=== PATIENT | male | born 1975 | race Two or more races ===

== ENCOUNTER 2024-03-27 10:19 | Emergency (ER) | payer MEDICAID, OTHER ==
[~2024-03-27] VITALS: Ht 167.6 cm; Wt 86.2 kg
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
[2024-03-27 11:34] VITALS: PULSE 65; RESP 18; O2SAT 95
[2024-03-27] MEDS: KETOROLAC TROMETH 60MG/2ML VIAL IM ONE (11:39)
--- NOTE | 2024-03-27 11:59 | DVH ---
EXAM: XY LUMBAR SPINE 3 VIEW HISTORY: pain COMPARISON: None TECHNIQUE: AP and lateral views of the lumbar spine were performed. FINDINGS: No fracture or listhesis of the lumbar spine. There is mild lumbar degenerative disc disease and fac et arthropathy. There is minimal lumbar dextroscoliosis. There is fecal retention in the colon, not f ully imaged here. IMPRESSION: 1. Degenerative changes of the lumbar spine without evidence of fracture. 2. Fecal retention in the colon which may indicate constipation.
[2024-03-27] MEDS ORDERED: TRAM-626 PO (12:05)
[2024-03-27 12:43] VITALS: BP 135/82; PULSE 62; RESP 18; TEMP 98.4; O2SAT 97
== END 2024-03-27 12:44 | disposition home or self-care (01) ==
LOC: ER 10:19
DX: S33.5XXA Sprain of ligaments of lumbar spine, initial encounter (principal); E78.5 Hyperlipidemia, unspecified; Z98.890 Other specified postprocedural states; V89.2XXA Person injured in unspecified motor-vehicle accident, traffic, initial encounter; Y93.89 Activity, other specified; Y92.89 Other specified places as the place of occurrence of the external cause; Y99.8 Other external cause status
CPT/HCPCS: 72100; 96372; 99283; J1885

== ENCOUNTER 2024-05-06 10:14 | Emergency (ER) | payer MEDICAID ==
[~2024-05-06] VITALS: Ht 167.6 cm; Wt 86.2 kg
[~2024-05-06 10:14] MED LIST: TRAM-626 PO
[2024-05-06 10:46] VITALS: BP 139/82; PULSE 69; RESP 18; TEMP 99.1; O2SAT 98
[2024-05-06 12:44] LABS: Urine Bacteria None Seen /hpf (None Seen); Urine Blood Negative /uL (Negative); Urine Clarity Clear (Clear); Urine Color Light-Yellow (Yellow); Urine Protein, UAD Negative (Negative); Urine Specific Gravity 1.016 (1.001-1.035); Urine Squamous Epithelial Cell None Seen /hpf (<5); Urine Urobilinogen Normal (Negative); Urine WBC < 1 /HPF (0-3)
[2024-05-06] MEDS ORDERED: CYCL-839 PO (13:01)
[2024-05-06] MEDS ORDERED: TRAM-626 PO (13:01)
--- NOTE | 2024-05-06 13:01 | ED.PDOC ---
Back pain HPI HPI Comments 49 year male with chx back pain presents for medication refill. Unable to schedule f/u with [facility]. No red flags. Chief Complaint: Back Pain Time Seen by MD: 10:47 Primary Care Provider: UNKNOWN Reviewed Notes: Nurses Notes, Medications, Allergies Allergies: Coded Allergies: NO KNOWN ALLERGIES (Unverified , 05/06/24) Home Meds Active Scripts Cyclobenzaprine Hcl (Cyclobenzaprine Hcl) 10 Mg Tab, 10 MG PO QHSP PRN for 14 Days, #30 TAB 0 Refills Prov:AALIYAH SHARMA V/[employer] 05/06/24 Tramadol HCl (Tramadol HCl) 50 Mg Tab, 50 MG PO Q12HP PRN for 10 Days, #20 TAB Prov:AALIYAH SHARMA V/[employer] 05/06/24 Information Source: Patient Mode of Arrival: Ambulatory Past Medical History PAST MEDICAL HISTORY: High Lipids Family History Family History: Reviewed,noncontributory to illness, No family hx of Cancer, No family hx of DM, No family hx of Heart marjorie, No family hx of HTN, No family hx ofKidney marjorie, No family hx of Liver marjorie, No family hx of Lung marjorie, No family hx of Stroke Social History Smoker: Non-Smoker Alcohol: Denies ETOH Use Drugs: Denies Drug Use Lives In: Home All Other Systems: Reviewed and Negative (Per HPI) Physical Exam General Appearance: No Apparent Distress, Normal HEENT: Normal ENT Inspection, Pharynx Normal, TMs Normal Neck: Full Range of Motion, Non-Tender, Normal, Normal Inspection Respiratory: Chest Non-Tender, Lungs Clear, No Accessory Muscle Use, No Respiratory Distress, Normal Breath Sounds Cardiovascular: No Murmur, No Gallop, Regular Rate/Rhythm Breast Exam: Deferred Gastrointestinal: No Organomegaly, Non Tender, No Pulsatile Mass, Normal Bowel Sounds, Soft Genitalia: Deferred Pelvic: Deferred Rectal: Deferred Extremities: No calf tenderness, Normal capillary refill, Normal inspection, Normal range of motion, Non-tender, No pedal edema Musculoskeletal : Apperance: Normal Neurologic: Alert, 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 Was a procedure done?: No Back Pain Differential Dx Differential Diagnosis: Musculoskeletal Pain X-Ray, Labs, Meds, VS Vital Signs Date Time Temp Pulse Resp B/P (MAP) Pulse Ox O2 Delivery O2 Flow Rate FiO2 05/06/24 10:46 69 18 98 Room Air 05/06/24 10:46 99.1 69 18 139/82 (101) 98 99.1 05/06/24 10:21 99.1 69 18 139/82 (101) 98 99.1 Lab Test 05/06/24 12:00 Range/Units Urine Color Light-yellow Yellow Urine Clarity Clear Clear Urine pH 6.0 5.0-9.0 Urine Specific [place] 1.016 1.001-1.035 Urine Protein Negative Negative Urine Ketones Negative Negative Urine Blood Negative Negative /uL Urine Nitrite Negative Negative Urine Bilirubin Negative Negative Urine Urobilinogen Normal Negative mg/dL Urine Leukocyte Esterase Negative Negative /uL Urine RBC None seen 0 - 3 /hpf Urine Microscopic WBC < 1 0-3 /HPF Urine Squamous Epithelial Cells None seen <5 /hpf Urine Bacteria None seen None Seen /hpf Urine Glucose Normal Normal mg/dL Current Medications Medications (Trade) Dose Ordered Sig/Ritu Route Start Time Stop Time Status Last Admin Ketorolac Tromethamine (Toradol Injection) 30 mg ONCE ONCE IM 05/06/24 13:00 05/06/24 13:01 DC 05/06/24 13:08 X-Ray, Labs, Meds, VS Comment Disposition: Discharge. Strict return precautions discussed with the patient with full understanding. Supportive care advised (rest, ice, heat, NSAIDs, stretching exercises) Massage muscles with cold pack or ice for 20 minutes 4 times per day. Usually most useful if there is swelling during the first 48 hours Heating pad on the most painful area for 20 minutes to relieve muscle spasm Sleep and the most comfortable sleeping position (usually on the side with knees bent) Light stretching, no strenuous activity, avoid frequent bending, avoid carrying heavy objects Discussed possible benefits of yoga and acupuncture Return precautions discussed including Inability to walk/bear weight Paresthesia/weakness/leg pain Fecal/urinary incontinence Any worsening symptoms Time of 1ST Reevaluation: 12:30 Reevaluation 1ST: Improved Patient Education/Counseling: Diagnosis, Treatment Family Education/Counseling: Diagnosis, Treatment Departure 1 Departure Time of Disposition: 12:56 Impression: Primary Impression: Lumbar sprain Qualified Codes: S33.5XXA - Sprain of ligaments of lumbar spine, initial encounter Disposition: 01 HOME / SELF CARE / HOMELESS Condition: Stable e-Prescriptions Cyclobenzaprine Hcl (Cyclobenzaprine Hcl) 10 Mg Tab 10 MG PO QHSP PRN for 14 Days, #30 TAB 0 Refills Prov: AALIYAH SHARMA V/[employer] 05/06/24 Tramadol HCl (Tramadol HCl) 50 Mg Tab 50 MG PO Q12HP PRN for 10 Days, #20 TAB Prov: AALIYAH SHARMA NP 05/06/24 Critical Care Note Critical Care Time?: No Stability Stability form required: No Heart Score Heart Score: Heart Score Response (Comments) Value History N/A 0 EKG N/A 0 Age N/A 0 Risk Factors N/A 0 Troponin N/A 0 Total 0 AALIYAH SHARMA NP May 06, 2024 13:01
[2024-05-06] MEDS: KETOROLAC TROMETH 30 MG/ML 1ML VIAL IM ONE (13:08)
== END 2024-05-06 13:22 | disposition home or self-care (01) ==
LOC: ER 10:14
DX: S33.5XXA Sprain of ligaments of lumbar spine, initial encounter (principal); E78.5 Hyperlipidemia, unspecified; Z79.899 Other long term (current) drug therapy; X58.XXXA Exposure to other specified factors, initial encounter; Y93.89 Activity, other specified; Y92.89 Other specified places as the place of occurrence of the external cause; Y99.8 Other external cause status
CPT/HCPCS: 81001; 96372; 99283; J1885

== ENCOUNTER → 2024-05-16 | Outpatient (CLI) | payer MEDICAID ==
[~2024-05-16] MED LIST changes: +CYCL-839 PO
[2024-05-16 07:39] LABS: Basophils # (auto) 0 10 ^3/uL (0-0.2); Basophils % (auto) 0.7 % (0.0-2.0); Eosinophils # (auto) 0.3 10 ^3/uL (0-0.8); Eosinophils % (auto) 4.8 % (0.0-7.0); Hematocrit 41.4 % (41.0-53.0); Hemoglobin 14.6 g/dL (13.5-17.5); Lymphocytes # (auto) 1.7 10 ^3/uL (0.4-5.4); Lymphocytes % (auto) 28.8 % (10.0-50.0); Mean Corpuscular Hemoglobin 31.9 pg (28.0-32.0); Mean Corpuscular Hgb Conc. 35.4 g/dL (32.0-36.0); Mean Corpuscular Volume 90.2 fL (80.0-100.0); Monocytes # (auto) 0.6 10 ^3/uL (0-1.3); Monocytes % (auto) 9.7 % (0.0-12.0); Neutrophils # (auto) 3.3 10 ^3/uL (1.6-8.6); Nucleated Red Blood Cells % 0.1 %; Platelet Count (auto) 212 10^3/uL (140-450); Red Blood Cells 4.59 10^6/uL (4.5-5.90); Red Cell Distribution Width 12.7 % (11.8-14.3); White Blood Cell 5.9 10^3/uL (4.4-10.8)
[2024-05-16 07:54] LABS: INR 0.98 (0.9-1.15); Prothrombin Time 10.4 sec (9.3-11.8)
[2024-05-16 08:06] LABS: Albumin 4.7 g/dL (3.2-4.8); Anion Gap 7 (5-15); Aspartate Aminotransferase 32 U/L (13-40); BUN/Creatinine Ratio 14.9 (10.0-20.0); Bilirubin, Total 0.6 mg/dL (0.2-1.0); Blood Urea Nitrogen 14 mg/dL (9-23); Calcium 9.8 mg/dL (8.7-10.4); Carbon Dioxide 28 mmol/L (20-31); Chloride 104 mmol/L (98-107); Potassium 4.3 mmol/L (3.5-5.1); Sodium 139 mmol/L (136-145); Total Protein 7.3 g/dL (5.7-8.2)
[2024-05-16 08:08] LABS: Alanine Aminotransferase 69 U/L (7-40); Alkaline Phosphatase 129 U/L (46-116); Glucose 110 mg/dL (74-106)
[2024-05-17 14:07] LABS: Anti-Nuclear Antibody Direct Negative (Negative)
== END | disposition home or self-care (01) ==
LOC: LAB 07:19
PROVIDERS: ATTEND Internal Medicine Gastroenterology
DX: K62.5 Hemorrhage of anus and rectum (principal); K21.9 Gastro-esophageal reflux disease without esophagitis; R94.5 Abnormal results of liver function studies
CPT/HCPCS: 36415; 80053; 82728; 85025; 85610; 86038

== ENCOUNTER → 2024-09-06 | Day surgery (SDC) | payer MEDICAID ==
[2024-09-03 10:23] LABS: Hematocrit 47.7 % (41.0-53.0); Hemoglobin 16.8 g/dL (13.5-17.5); Mean Corpuscular Hemoglobin 31.5 pg (28.0-32.0); Mean Corpuscular Volume 89.6 fL (80.0-100.0); Nucleated Red Blood Cells % 0.2 %
[2024-09-03 10:29] LABS: INR 0.96 (0.9-1.15); Partial Thromboplastin Time 26.7 SEC (24.5-34.5); Prothrombin Time 10.2 sec (9.3-11.8)
[2024-09-03 10:55] LABS: Albumin 4.7 g/dL (3.2-4.8); Alkaline Phosphatase 91 U/L (46-116); Anion Gap 6 (5-15); BUN/Creatinine Ratio 11.8 (10.0-20.0); Bilirubin, Total 0.8 mg/dL (0.2-1.0); Blood Urea Nitrogen 11 mg/dL (9-23); Calcium 10.1 mg/dL (8.7-10.4); Carbon Dioxide 28 mmol/L (20-31); Chloride 106 mmol/L (98-107); Glucose 96 mg/dL (74-106); Potassium 4.2 mmol/L (3.5-5.1); Sodium 140 mmol/L (136-145); Total Protein 7.3 g/dL (5.7-8.2)
[2024-09-03 10:57] LABS: Alanine Aminotransferase 101 U/L (7-40)
[~2024-09-06] MED LIST changes: +ALBUAER3 IN; +ATOR10TA PO; -CYCL-839 PO; +FAMO-68 PO; +FLUT250M2 IN; +HYDR1TAB97 PO; +OMEP20TA PO; +SODIUM CHLORIDE LOCK 10 ML ONE; +TIZA6CAP10 PO; -TRAM-626 PO
[2024-09-06 11:45] VITALS: PULSE 90; RESP 16; O2SAT 98
[2024-09-06] MEDS: fentaNYL CITRATE 100 MCG/2 ML VL ONE (11:46)
[2024-09-06] MEDS: LIDOCAINE VISCOUS 2% 15ML UD ONE (11:46)
[2024-09-06] MEDS: diphenhdrAMINE HCL 50 MG/1 ML VL ONE (11:46)
[2024-09-06] MEDS: MIDAZOLAM HCL 5 MG/ML-1ML VIAL ONE (11:46)
[2024-09-06 12:00] VITALS: PULSE 71; RESP 14; O2SAT 100
--- NOTE | 2024-09-06 12:02 | DVHOP2 ---
Operative Report DATE OF OPERATION: 09/06/24 PROCEDURE: Upper Endoscopy with biopsy. PREOPERATIVE INDICATION: The patient is a 49 -year-old male undergoing endoscopy for chronic GERD POSTOPERATIVE DIAGNOSES: 1. 5 mm extension of columnar epithelium into the distal esophagus with minimal grade a erosive esophagitis and GE junction biopsies were obtained 2. Mild to moderate gastritis and gastropathy more prominent in the proximal stomach with hyperemia erythema and some linear erosions 3. Otherwise normal examination up to the 2nd and 3rd part of the duodenum PROCEDURE PERFORMED BY: Barrington Velásquez GI NURSE: Nolvia SCOPE: Olympus videoendoscope. ASA CLASS: 2. PREOPERATIVE MEDICATIONS: Versed 3 mg, Fentanyl 100 mcg, Benadryl 50 mg I administered moderate sedation throughout this _7_ minutes procedure. An independent trained observer pushed medications at my direction, and monitored the patient's level of consciousness and physiological status throughout. PROCEDURE IN DETAIL: After obtaining an informed consent, the patient was placed on left lateral decubitus position. The patient was then sedated with the above medications. A bite block was placed between his teeth. The endoscope was then passed through the oropharynx, into the esophagus, and through the stomach and pylorus up to the second and third part of the duodenum. The endoscope was then withdrawn. Second and 3rd part of the duodenum and the duodenal bulb were normal. Duodenal biopsies were obtained The pre-pyloric area and antrum and distal body showed mild gastritis. On retroflexion the fundus cardia and proximal body showed moderate gastropathy There were linear erosions and hyperemia and hypertrophic gastritis. Gastric biopsies were obtained. The endoscope was then withdrawn into distal esophagus Patient had a 5 mm extension of columnar epithelium into the distal esophagus with minimal grade a erosive esophagitis. GE junction biopsies were obtained The remaining distal and proximal esophagus and oropharynx were unremarkable except for some tertiary contractions The patient tolerated the procedure well without difficulty. COMPLICATIONS : None SPECIMENS: Duodenal biopsies Gastric biopsies GE junction biopsies DISPOSITION: Stable D/C to home PLAN: 1. Await for biopsy result 2. Will place pt on Protonix 40 mg p.o. daily 3. Trial of Carafate 1 g p.o. twice a day 4. DC aspirin NSAIDs smoking alcohol 5. Resume GI soft diet advance as tolerated 6. Outpatient follow up with me in 4-6 weeks to review results and discuss further management BARRINGTON VELÁSQUEZ MD Sep 06, 2024 12:02
[2024-09-06 12:15] VITALS: PULSE 69; RESP 16
[2024-09-06 12:35] VITALS: BP 120/81; PULSE 64; PULSE 95; RESP 17; RESP 20; O2SAT 95
== END | disposition home or self-care (01) ==
LOC: GI 09:14
PROVIDERS: ATTEND Internal Medicine Gastroenterology
DX: K21.00 Gastro-esophageal reflux disease with esophagitis, without bleeding (principal); K29.50 Unspecified chronic gastritis without bleeding; K31.9 Disease of stomach and duodenum, unspecified; K52.9 Noninfective gastroenteritis and colitis, unspecified
CPT/HCPCS: 36415; 43239; 80053; 85025; 85610; 85730; 88305; 88342; J1200; J2250; J3010; J7030

== ENCOUNTER → 2024-10-07 | Day surgery (SDC) | payer MEDICAID ==
[2024-09-30 10:42] LABS: Hematocrit 45.9 % (41.0-53.0); Hemoglobin 16.0 g/dL (13.5-17.5); Mean Corpuscular Hemoglobin 31.6 pg (28.0-32.0); Mean Corpuscular Volume 90.4 fL (80.0-100.0); Nucleated Red Blood Cells % 0.1 %
[2024-09-30 11:11] LABS: Alkaline Phosphatase 100 U/L (46-116); Anion Gap 7 (5-15); BUN/Creatinine Ratio 9.4 (10.0-20.0); Calcium 9.2 mg/dL (8.7-10.4); Carbon Dioxide 29 mmol/L (20-31); Chloride 106 mmol/L (98-107); Glucose 98 mg/dL (74-106); Potassium 4.4 mmol/L (3.5-5.1); Sodium 142 mmol/L (136-145); Total Protein 7.0 g/dL (5.7-8.2)
[2024-09-30 11:12] LABS: Albumin 4.6 g/dL (3.2-4.8); Bilirubin, Total 0.9 mg/dL (0.2-1.0)
[2024-09-30 11:17] LABS: Alanine Aminotransferase 132 U/L (7-40); Blood Urea Nitrogen 9 mg/dL (9-23)
[2024-09-30 11:31] LABS: INR 1.01 (0.9-1.15); Partial Thromboplastin Time 27.1 SEC (24.5-34.5); Prothrombin Time 10.7 sec (9.3-11.8)
[~2024-10-07] VITALS: Ht 167.6 cm; Wt 89.4 kg
[~2024-10-07] MED LIST changes: +MIDAZOLAM HCL 5 MG/ML-1ML VIAL ONE; +diphenhdrAMINE HCL 50 MG/1 ML VL ONE; +fentaNYL CITRATE 100 MCG/2 ML VL ONE
[2024-10-07 14:00] VITALS: PULSE 67; RESP 18; O2SAT 97
[2024-10-07] MEDS: MIDAZOLAM HCL 5 MG/ML-1ML VIAL IV ONE (14:02)
[2024-10-07 14:19] VITALS: TEMP 98.2
--- NOTE | 2024-10-07 14:23 | DVHOP2 ---
Operative Report DATE OF OPERATION: 10/07/24 PROCEDURE: Colonoscopy with cold biopsy. PREOPERATIVE INDICATION: The patient is a 49 -year-old male undergoing colonoscopy for evaluation of rectal bleeding POSTOPERATIVE DIAGNOSES: 1. Minimal nonspecific healing colitis of right colon and hepatic flexure from which biopsies were obtained 2. 1+ internal hemorrhoids otherwise completely normal colonoscopy examination up to the cecum PROCEDURE PERFORMED BY: Barrington Veláqsuez M.D. SCOPE: Olympus videocolonoscope. ASA CLASS: [place] PREOPERATIVE MEDICATIONS: Versed 2 mg, Fentanyl 50 mcg, Benadryl 50 mg PROCEDURE IN DETAIL: After obtaining an informed consent, the patient was placed on left lateral decubitus position. He was then sedated with the above medications. A rectal examination was performed that was normal. The colonoscope was then passed through the anus into the rectosigmoid and through the descending, transverse, and ascending colon up to the cecum with visualization of the appendiceal orifice, base of the cecum and the ileocecal valve. The colonoscope was then withdrawn. No polyps or masses were seen. There was minimal evidence of healing nonspecific colitis more prominent in the hepatic flexure in the right colon Random right colon and left colon biopsies were obtained. There was no clear- cut diverticular disease. On retroflexion and straight on view he had 1+ internal hemorrhoids The patient tolerated the procedure well without difficulty. WITHDRAWAL TIME: 6 minutes QUALITY OF THE PREP: [place] Bowel Prep score: 9. COMPLICATIONS : None SPECIMENS: Random right colon biopsies Random left colon biopsies DISPOSITION: Stable D/C to home PLAN: 1. Repeat colonoscopy base on biopsy result likely in 7-10 years 2. Resume GI soft diet advance as tolerated 3. Local anorectal hemorrhoidal care 4. Outpatient follow up with me in 4-6 weeks to review results and discuss further management BARRINGTON VELÁSQUEZ MD Oct 07, 2024 14:23
[2024-10-07 14:45] VITALS: BP 136/85; PULSE 63; RESP 21; O2SAT 95
== END | disposition home or self-care (01) ==
LOC: GI 11:44
PROVIDERS: ATTEND Internal Medicine Gastroenterology
DX: K62.5 Hemorrhage of anus and rectum (principal); K64.8 Other hemorrhoids; K52.89 Other specified noninfective gastroenteritis and colitis; K63.89 Other specified diseases of intestine; K21.9 Gastro-esophageal reflux disease without esophagitis; J45.909 Unspecified asthma, uncomplicated; Z79.899 Other long term (current) drug therapy; Z98.890 Other specified postprocedural states
CPT/HCPCS: 36415; 45380; 80053; 85025; 85610; 85730; 88305; 88342; J1200; J2250; J3010; J7030; 99152

== ENCOUNTER 2024-10-21 10:22 | Outpatient (CLI) | payer MEDICAID ==
[~2024-10-21 10:22] MED LIST changes: -MIDAZOLAM HCL 5 MG/ML-1ML VIAL ONE; -SODIUM CHLORIDE LOCK 10 ML ONE; -diphenhdrAMINE HCL 50 MG/1 ML VL ONE; -fentaNYL CITRATE 100 MCG/2 ML VL ONE
[2024-10-22 08:07] LABS: Free Thyroxine Index 1.7 (1.2-4.9)
== END 2024-10-21 17:00 | disposition home or self-care (01) ==
LOC: LAB 10:22
PROVIDERS: ATTEND Internal Medicine Gastroenterology
DX: K51.90 Ulcerative colitis, unspecified, without complications (principal); K59.02 Outlet dysfunction constipation; R10.9 Unspecified abdominal pain
CPT/HCPCS: 36415; 84153; 84443; 86256; 86671